=== PATIENT | female | born 1990 | race Caucasian/White ===

== ENCOUNTER 2020-11-02 19:42 | Emergency (ER) | payer OTHER ==
[~2020-11-02] VITALS: Ht 165.1 cm; Wt 54.4 kg
[2020-11-02 19:59] VITALS: BP 122/73; Ht 165.1 cm; Wt 54.4 kg
== END 2020-11-02 20:26 | disposition home or self-care (01) ==
LOC: ED 19:42
DX: S39.011A Strain of muscle, fascia and tendon of abdomen, initial encounter (principal); V49.09XA Driver injured in collision with other motor vehicles in nontraffic accident, initial encounter; Y93.I9 Activity, other involving external motion; Y92.413 State road as the place of occurrence of the external cause; Y99.8 Other external cause status; Z90.49 Acquired absence of other specified parts of digestive tract